=== PATIENT | female | born 1955 | race Caucasian/White ===

== ENCOUNTER → 2016-12-24 07:31 | Outpatient (CLI) | payer BC | END | disposition home or self-care (01) | LOC: D.CT 12-17 08:00 | DX: R91.1 Solitary pulmonary nodule (principal) ==

== ENCOUNTER 2019-01-12 09:00 | Outpatient (CLI) | payer BC | END 2019-01-12 10:00 | disposition home or self-care (01) | LOC: D.MAMMO 09:00 | PROVIDERS: ATTEND Family Medicine | DX: Z12.31 Encounter for screening mammogram for malignant neoplasm of breast (principal) ==

== ENCOUNTER 2019-02-02 09:00 | Outpatient (CLI) | payer BC | END 2019-02-02 10:00 | disposition home or self-care (01) | LOC: D.MAMMO 09:00 | PROVIDERS: ATTEND Family Medicine | DX: R92.8 Other abnormal and inconclusive findings on diagnostic imaging of breast (principal) ==